=== PATIENT | female | born 1965 | race African-American/Black ===

== ENCOUNTER 2019-11-28 19:30 | Emergency (ER) | payer OTHER ==
--- OUTSIDE RECORDS SUMMARY | 2019-11-28 19:34 | XMS REPORT | Continuity of Care Document ---
:1965 Author Organization [employer] Care Team Providers Name Role Phone [employer] Unavailable Un available Problems Problem Status Onset Classification Date Comments Sourc e Date Reported 782.3 - EDEMA Active 08/09/19 OPI D 14 [place] 719.46 - JOINT Active 03/23/20 OP ID PAIN-L/LE 13 [place] HEADACHE, DIZZY Active 08/12/19 [place] 13 [place] CORNELIUS Active 12/18/19 [place] 12 [place] CHRONIC Active 05/20/20 [place] CHOLECYSTITIS 11 [place] ACUTE Active 05/09/20 [place] CHOLELITHIASIS 11 [place] Cholelithiasis Active Problem 08/14/2012 O PID [place] Pain Active Problem 08/14/2012 OPID [place] Anxiety Active Problem 08/14/2012 [place] Arthritis Active Problem 08/14/2012 [place] Carpal tunnel Active Problem 08/14/2012 [place] Cystitis Active Problem 08/14/2012 [place] Fibroid uterus Active Problem 08/14/2012 [place] HTN - Resolved Problem 08/14/2012 [place] Hypertension [place] Migraine Active Problem 08/14/2012 [place] Sleep apnea Active Problem 08/14/2012 [place] Anxiety (finding) Active Problem 08/11/2013 M H OPID [place], OPID [place] Arthritis Active Problem 08/11/2013 OPID (disorder) [place], OPID Zam[place] Entire carpal Active Problem 08/11/2013 OP ID canal (body [place] structure) [place], OPID Zam[place] Calculus in Active Problem 08/11/2013 OPID biliary tract [place] (disorder) [place], OPID [place] Cystitis Active Problem 08/11/2013 OPID (disorder) [place], OPID [place] Leiomyoma, 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 Problem 08/11/2013 OP ID ICD-O subtype [place] (morphologic [place],MH abnormality) OPID [place] Hypertensive Resolved Problem 08/11/2013 OPI D disorder, [place] systemic arterial [place] (disorder) ROBBY Zamud[place] Migraine Active Problem 08/11/2013 OPID (disorder) [place], ROBBY Zam[place] Pain (finding) Active Problem 08/11/2013 O PID [place], ROBBY [place] Sleep apnea Active Problem 08/11/2013 OPID (finding) [place], OPID Rob[place] CHOLELITHIASIS Active [place] NOS [place] Medications Medication Details Route Status Patient Ordering Order Source Instructions Provider Date tizanidine 4 mg Substitution Active [place] oral tablet Allowed 013 [place] 10/325 Substitution Active [place] oral tablet Allowed, 013 [place] Maintenance Nasonex 50 Substitute Active [place] mcg/inh nasal Allowed 013 [place] spray omeprazole Substitution Active [place] Allowed 013 [place] zolpidem Substitution Active [place] Allowed [place]13 [place] Norvasc 5 mg Substitution Active [place] oral tablet Allowed 013 [place] Xanax 0.25 mg Substitution Active [place] oral tablet Allowed 013 [place] Toprol-XL 50 mg Substitution Active [place] oral tablet, Allowed 013 [place] extended release triamterene Substitution Active [place] All[place] BD Posiflush SF 15 mL, Route: IVP [facility] [place] IVP, Drug Form: Longer 011 [place] INJ, PRN, PRN Active Line Flush, Start date: 05/10/11 13:23:00, Duration: 30 day, Stop date: 06/09/11 13:22:00 lisinopril 10 mg, 2 tab, PO [facility] [place] Route: PO, Drug [place]11 [place] form: TAB, Active ONCE, Start date: 05/10/11 12:30:00, Stop date: 05/10/11 12:30:00 metoprolol 50 mg, 2 tab, PO [facility] [place] Route: PO, Drug [place]11 [place] form: TAB, Active ONCE, Start date: 05/10/11 12:28:00, Stop date: 05/10/11 12:28:00 Zosyn 3.375 gm, IV [facility] [place] Route: IV, Longer 011 [place] [id number], Start Active date: 05/10/11 12:00:00, Duration: 30 day, Stop date: 06/09/11 4:00:00 Metoprolol 25 mg, 1 tab, PO Active [place] Succinate ER 25 PO, BID, 011 [place] mg oral tablet, Substitution extended release Allowed loratadine 10 mg 10 mg, 1 tab, PO Active H [place] oral tablet PO, Daily, PRN, 011 [place] as needed for allergy symptoms, Substitution Allowed Multiple 1 tab, PO, PO Active [place] Vitamins oral Daily, 30 tab, 011 Arnoldo d tablet Substitution Allowed, Maintenance, TAB Sodium Chloride 1,000 mL, Rate: IV Kirsten [facility] [place] 0.9% (Bolus) IV 100 ml/hr, Longer Angelina 1,000 mL Infuse over: 10 Active hr, Route: IV, Total Volume: 1,000, Start date: 05/10/11 4:40:00, Duration: 30 day, Stop date: 06/09/11 4:39:00 Saline Flush 5 ml, Route: IVP [facility] [place] 0.9% IVP, Drug Form: [place] INJ, PRN, PRN Active Line Flush, Start date: 05/10/11 4:11:00, Duration: 30 day, Stop date: 06/09/11 4:10:00 ondansetron 4 mg, 2 mL, IVP [facility] [place] Route: IVP, [place] Drug form: INJ, Active Q6H, PRN Nausea & Vomiting, Start date: 05/10/11 4:11:00, Duration: 30 day, Stop date: 06/09/11 4:10:00 morphine Sulfate 2 mg, 0.4 mL, IVP [facility] [place] Route: IVP, [place] 011 [place] Drug form: INJ, Active Q3H, PRN Pain Score 4-6, Start date: 05/10/11 4:11:00, Duration: 30 day, Stop date: 06/09/11 4:10:00 acetaminophen 650 mg, 2 tab, PO [facility] [place] Route: PO, Drug [place] 011 [place] form: TAB, Q4H, Active PRN Pain/Fever, Start date: 05/10/11 4:11:00, Duration: 30 day, Stop date: 06/09/11 4:10:00 Zosyn 3.375 gm, IVPB No [facility] [place] Route: IVPB, [place] 011 [place] ONCE, Priority: Active STAT, Start date: 05/10/11 3:33:00, Stop date: 05/10/11 3:33:00 Zofran 4 mg, Route: IVP No [facility] [place] IVP, Drug form: [place]11 [place] INJ, ONCE, Active Priority: STAT, Start date: 05/10/11 3:33:00, Stop date: 05/10/11 3:33:00 morphine Sulfate 2 mg, Route: IVP No [facility] [place] IVP, ONCE, Long[place] 011 [place] Priority: STAT, Active Start date: 05/10/11 3:33:00, Stop date: 05/10/11 3:33:00 Ibu 600 mg oral 600 mg, PO, PO Active [place] tablet Q6H, PRN, 30 011 [place] tab, Pain, Substitution Allowed, Take with foodTake with food citalopram 10 mg 1 tab, PO, PO Active [place] oral tablet Daily, 30 tab, 011 [place] Substitution Allowed, TAB lisinopril 10 mg 1 tab, PO, PO Active [place] oral tablet Daily, 30 tab, 011 [place] Substitution Allowed, TAB metoprolol 50 mg 1 tab, PO, BID, PO No [place] oral tablet 180 tab, Longer 011 [place] Substitution Active Allowed, TAB ketorolac 30 mg, 1 mL, IVP No [facility] [place] Route: IVP, Long[place] 011 [place] Drug form: INJ, Active ONCE, Priority: STAT, Start date: 05/09/11 22:18:00, Stop date: 05/09/11 22:18:00 ondansetron 4 mg, 2 mL, IVP No [facility] [place] Route: IVP, [place] 011 [place] Drug form: INJ, Active ONCE, Priority: STAT, Start date: 05/09/11 22:18:00, Stop date: 05/09/11 22:18:00 Saline Flush 5 ml, Route: IVP No [place] 0.9% IVP, Drug Form: [place] 011 [place] INJ, PRN, PRN Active Line Flush, Start date: 05/09/11 22:18:00, Duration: 30 day, Stop date: 06/08/11 22:17:00 Sodium Chloride 1,000 mL, Rate: IV No [place] 0.9% (Bolus) IV 1,000 ml/hr, Longer 011 Arnoldo d 1,000 mL Infuse over: 1 Active hr, Route: IV, Total Volume: 1,000, Bolus Dose, Priority: STAT, Start date: 05/09/11 22:18:00, Duration: 1 doses or times, Stop date: 05/09/11 23:17:00 Allergies, Adverse Reactions, Alerts No Known Medication Allergies Immunizations No Data Provided for This Section Results Order Name Results Value Reference Date Interpretation Comments Ketty rce Range CHEMISTRY Lipase Lvl 150.0 73 - 393 05/10 Normal [place] CHEMISTRY Globulin 4.2 2.0 - 4.0 05/10 HI [place] CHEMISTRY A/G Ratio 0.9 0.7 - 1.6 05/10 Normal [place] CHEMISTRY B/C Ratio 12.0 6 - 25 05/10 Normal [place] CHEMISTRY AGAP 14.0 10.0 - 05/10 Normal MH 20.0 [place] CHEMISTRY Total Protein 8.0 6.4 - 8.4 05/10 Normal [place] CHEMISTRY Alk Phos 73.0 39 - 136 05/10 Normal [place] CHEMISTRY ALT 27.0 0 - 65 05/10 Normal [place] CHEMISTRY Albumin Lvl 3.8 3.5 - 5.0 05/10 Normal [place] CHEMISTRY AST 14.0 0 - 37 05/10 Normal [place] CHEMISTRY Bili Total 0.3 0.2 - 1.3 05/10 Normal [place] CHEMISTRY Creatinine 1.0 0.5 - 1.4 05/10 Normal MH Lvl /2010 [place] CHEMISTRY Sodium Lvl 139.0 135 - 145 05/10 Normal [place] CHEMISTRY Potassium Lvl 4.0 3.5 - 5.1 05/10 Normal [place] CHEMISTRY CO2 29.0 24 - 32 05/10 Normal [place] CHEMISTRY Chloride Lvl 100.0 95 - 109 05/10 Normal [place] CHEMISTRY Calcium Lvl 9.7 8.5 - 10.5 05/10 Normal [place] CHEMISTRY Glucose Lvl 119.0 05/10 NA <sup>1</sup>In terpretive [place] Data: [place] Reference Ranges : 0 - 7 days : 41 - 90 mg/dL 7 days - 150 yrs : 70 - 99 mg/dL (fasting), based on the clinical recommendation s of the [place] [employer]. CHEMISTRY BUN 12.0 7 - 22 05/10 Normal [place] CHEMISTRY Amylase Lvl 62.0 25 - 115 05/10 Normal [place] HEMATOLOGY MPV 9.9 7.4 - 10.4 05/10 Normal [place] HEMATOLOGY RDW 13.2 11.5 - 05/10 Normal 14.5 [place] HEMATOLOGY MCHC 34.3 32.0 - 05/10 Normal MH 36.0 [place] HEMATOLOGY MCH 33.3 27.0 - 05/10 HI MH 31.0 [place] HEMATOLOGY MCV 97.1 81.0 - 05/10 Normal 99.0 [place] HEMATOLOGY Platelet 293.0 133 - 450 05/10 Normal [place] HEMATOLOGY RBC 4.01 4.20 - 05/10 LOW MH 5.40 /2010 [place] HEMATOLOGY WBC 14.4 3.7 - 10.4 05/10 HI /2010 [place] HEMATOLOGY Hct 38.9 36.0 - 05/10 Normal MH 48.0 /2010 [place] HEMATOLOGY Hgb 13.4 12.0 - 05/10 Normal MH 16.0 [place] HEMATOLOGY Eosinophils # 0.1 0.0 - 0.5 05/10 Normal /2010 [place] HEMATOLOGY Basophils # 0.1 0.0 - 0.2 05/10 Normal [place] HEMATOLOGY Basophils 0.4 0.0 - 1.0 05/10 Normal [place] HEMATOLOGY Monocytes # 0.6 0.0 - 0.8 05/10 Normal MH /2010 [place] HEMATOLOGY Lymphocytes # 1.2 1.0 - 5.5 05/10 Normal MH /2010 [place] HEMATOLOGY Segs-Bands # 12.4 1.5 - 8.1 05/10 HI MH /2010 [place] HEMATOLOGY Monocytes 4.3 2.0 - 12.0 05/10 Normal MH /2010 [place] HEMATOLOGY Eosinophils 0.7 0.0 - 4.0 05/10 Normal MH /2010 [place] HEMATOLOGY Segs 86.1 45.0 - 05/10 HI MH 75.0 [place] HEMATOLOGY Lymphocytes 8.5 20.0 - 05/10 LOW MH 40.0 /2010 [place] HEMATOLOGY RBC Morph Normal 05/10 Normal MH (05/09/2011 23:40:00) ?? [place] HEMATOLOGY Plt Morph Normal 05/10 Normal MH (05/09/2011 23:40:00) ?? [place] URINALYSIS UA Mucus Moderate /LPF >None Seen 05/10 ABN *ABN* [place] (05/09/2011 22:00:00) ?? [place] URINALYSIS UA Bacteria Few /HPF >None Seen 05/10 Normal MH (05/09/2011 22:00:00) ?? [place] URINALYSIS UA Sq Epi Moderate /LPF >Few 05/10 ABN MH *ABN* [place] (05/09/2011 22:00:00) ?? [place] URINALYSIS UA WBC 6-10 /HPF >None Seen 05/10 ABN *ABN* [place] (05/09/2011 22:00:00) ?? [place] URINALYSIS UA RBC 3-5 /HPF >0 - 2 05/10 ABN MH *ABN* [place] (05/09/2011 22:00:00) ?? [place] URINALYSIS UA Glucose Negative >Negative 05/10 Normal MH (05/09/2011 22:00:00) ?? [place] URINALYSIS UA Bili Small >Negative 05/10 ABN MH *ABN* [place] (05/09/2011 22:00:00) ?? [place] URINALYSIS UA Ketones Negative >Negative 05/10 NA MH *NA* [place] (05/09/2011 22:00:00) ?? [place] URINALYSIS UA Blood Negative >Negative 05/10 Normal MH (05/09/2011 22:00:00) ?? [place] URINALYSIS UA Protein Trace >Negative 05/10 ABN MH *ABN* [place] (05/09/2011 22:00:00) ?? [place] URINALYSIS UA Turbidity Slight Cloudy >Clear 05/10 Normal MH (05/09/2011 22:00:00) ?? [place] URINALYSIS UA Color Yellow >Yellow 05/10 NA MH *NA* /2010 [place] (05/09/2011 22:00:00) ?? [place] URINALYSIS UA Spec Grav >=1.030 <<=1.030 05/10 ABN MH *ABN* /2010 [place] (05/09/2011 22:00:00) ?? [place] URINALYSIS UA Leuk Est Negative >Negative 05/10 Normal MH (05/09/2011 22:00:00) ?? [place] URINALYSIS UA Nitrite Negative >Negative 05/10 Normal MH (05/09/2011 22:00:00) ?? [place] URINALYSIS Micro? Performed 05/10 Normal MH (05/09/2011 22:00:00) ?? [place] URINALYSIS UA pH 6.0 5.0 - 8.0 05/10 Normal MH /2010 [place] URINALYSIS UA 1.0 0.1 - 1.0 05/10 Normal Urobilinogen /2010 [place] Microbiolog Culture: 05/10 y Urine /2010 [place] Pathology Reports No Data Provided for This Section Diagnostic Reports Report Value Date Source Chest 2 views Chest 2 views. 08/09/2013 ROBBY [place] HISTORY: Edema. Compared to 02/25/2012, card iac silhouette remains at the upper limits of normal in size. No interval development of pneumonia or pulmonary edema. Mild elevation of the right hemidiaphragm unchanged. No new lesions seen in the interval. Knee wo contrast MRI EXAM: MR RIGHT KNEE WITHOUT CONTRAST. 04/01 TAURUS TANGRoland Zamudio DATE: Apr 01, 2013 02:32:00 PM INDICATION: 719.46 Pain in Joint Involving Low er Leg COMPARISON: None available. TECHNIQUE: Multiplanar, mult isequence images of the right knee are provided without intravenous contrast. FINDINGS: Menisci: Medial meniscus: Maceration throughout the body and posterior horn is noted. There is partial extrusion of the medial meniscal body. Lateral meniscus: Intrasubst ance degeneration is seen throughout the anterior horn. There is mild intrasubstance degeneration of the body and posterior horn. Meniscus is intact otherwise. Ligaments: ACL: Near full-thickness mid substance rupture with increased signal throughout the remaining fibers. PCL: There is minimal increa sed signal within the posterior medial bundle at the femoral attachment. No disruption of fibers is seen. MCL: There is edema surround ing the MCL with mild thickening. No disruption of fibers is seen. Lateral collateral complex: Intact. Extensor mechanism: The quad riceps tendon, patella and the patellar tendon are intact. Muscles: Degenerative signal within the popliteus tendon at the attachment is present. No signal abnormality in the muscles. Cartilage: Patellofemoral compartment: There is extensive cartilage fissuring with areas of full-thickness cartilage loss and central osteophyte formation throughout the central trochlea and patella apex. Medial compartment: Full-thi ckness cartilage loss in the weight-bearing articular surface is seen with subjacent bony edema and sclerosis. Lateral compartment: Surface fraying of the weight-bearing cartilage is noted. Bone: Tricompartmental osteo phytes are present. There is no fracture identified. Soft tissue: Joint effusion is noted. There is a subcutaneous edema throughout the anterior knee. Multiple T2 hyperintense ganglion cysts are seen in the posterior joint recesses. Neurovascular structures are normal. IMPRESSION: 1. Near full-thickness midsubstance tear of the ACL. 2. Grade 1 sprain of the proximal MCL. 3. Macerated medial meniscus posterior horn with extrusion and extensive degenerative tearing of the medial meniscus body. 4. 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 5. Extensive cartilage fissu ring with areas of full-thickness cartilage loss and central osteophyte formation at the patellofemoral compartment. Consultation Notes No Data Provided for This Section Discharge Summaries No Data Provided for This Section History and Physicals No Data Provided for This Section Vital Signs Vital Sign Value Date Comments Source Weight 133.182 08/12/2012 [place] Height 157.48 cm 08/12/2012 [place] Diastolic (mm Hg) 81.0 05/10/2011 MH [place] L and Systolic (mm Hg) 168.0 05/10/2011 [place] Temperature Oral (F) 97.3 F 05/10/2011 MH [place] Respitory Rate 18.0 05/10/2011 [place] Heart Rate 70.0 05/10/2011 MH [place] Heart Rate 81.0 05/10/2011 [place] Temperature Oral (F) 98.2 F 05/10/2011 MH [place] Respitory Rate 20.0 05/10/2011 MH [place] Systolic (mm Hg) 180.0 05/10/2011 MH [place] Diastolic (mm Hg) 91.0 05/10/2011 MH [place] L and Height 157.48 cm 05/10/2011 MH [place] Weight 143.267 05/10/2011 MH [place] Respitory Rate 20.0 05/10/2011 MH [place] Systolic (mm Hg) 154.0 05/10/2011 MH [place] Heart Rate 78.0 05/10/2011 [place] Diastolic (mm Hg) 72.0 05/10/2011 [place] L and Temperature Oral (F) 97.8 F 05/10/2011 [place] Height 157.48 cm 05/10/2011 [place] Weight 143.0 05/10/2011 [place] Encounters Location Location Encounter Encounter Reason Attending ADM NE Stat us Source Details Type Number For Provider Date Date Visit OU [id number] ACUTE JAYESH 05/10 05/10 Active [place] CHOLELIT HEARD /2010 [place] HIASIS Outpatient [id number] CORNELIUS DOLORES 12/23 Active [place] NUNU /2012 [place] Emergency [id number] HEADACHE ZEESHAN 08/12 08/12 Activ e [place] , DIZZY QUINTANILLA /2012 [place] OD [id number] 719.46 - REHAL 04/01 04/01 Active OPID JOINT OJANI /2012 [place] PAIN-L/L E OD [id number] 782.3 - REHAL 08/09 08/09 Active OPID EDEMA OJANI /2013 [place] DS [id number] CHRONIC JAYESH Cancel [place] CHOLECYS HEARD [place] TITIS Procedures Procedure Code Date Perfomer Comments Source Hysterectomy [id number] [place] Assessment and Plan No Data Provided for This Section Plan of Care No Data Provided for This Section Social History No Data Provided for This Section Family History No Data Provided for This Section Advance Directives No Data Provided for This Section Functional Status No Data Provided for This Section
--- NOTE | 2019-11-28 20:19 | RAD REPORT ---
EXAM DESCRIPTION: CT - Ct Stroke Brain Wo Cont - 11/28/2019 8:12 pm CLINICAL HISTORY: NUMBNESS Headache, drowsiness, CVA symptomology COMPARISON: No comparisons TECHNIQUE: All CT scans are performed using dose optimization technique as appropriate and may inclu de automated exposure control or mA/KV adjustment according to patient size. FINDINGS: No intracranial hemorrhage, hydrocephalus or extra-axial fluid collection.No areas of brai n edema or evidence of midline shift. The paranasal sinuses and mastoids are clear. The calvarium is intact. IMPRESSION: No acute intracranial abnormality.
--- NOTE | 2019-11-28 20:20 | RAD REPORT ---
EXAM DESCRIPTION: RAD - Chest Single View - 11/28/2019 8:15 pm CLINICAL HISTORY: numbness Chest pain. COMPARISON: Chest Single View dated 02/09/2017 FINDINGS: Portable technique limits examination quality. The lungs are grossly clear. The heart is mildly prominent in size. No displaced fractures. IMPRESSION: No acute intrathoracic process suspected.
[2019-11-28 20:57] LABS: Absolute Lymphocytes (CBC) 1.7 K/uL (0.7-4.9); Basophils % 0.8 % (0-1.3); Hematocrit 42.9 % (36.0-45.0); Lymphocytes % 20.1 % (15.3-44.8); MPV 10.2 fL (7.6-11.3); RBC Red Blood Cell Count 4.37 M/uL (3.86-4.86)
[2019-11-28 21:05] LABS: Protime INR 1.12
[2019-11-28 21:16] LABS: Magnesium 1.6 mg/dL (1.8-2.4); Phosphorus 2.2 mg/dL (2.5-4.9)
[2019-11-28 21:22] LABS: ALT/SGPT 29 U/L (12-78); AST/SGOT 28 U/L (15-37); Albumin 3.5 g/dL (3.4-5.0); Alkaline Phosphatase 112 U/L (45-117); BUN Blood Urea Nitrogen 10 mg/dL (7-18); Bicarbonate 29 mmol/L (21-32); Bilirubin Direct 0.1 mg/dL (0-0.2); Bilirubin Total 0.4 mg/dL (0.2-1.0); Glucose Level 136 mg/dL (74-106); Potassium 4.4 mmol/L (3.5-5.1); Protein, Total 7.7 g/dL (6.4-8.2); Sodium Level 139 mmol/L (136-145); Troponin (Emerg Dept Use Only) < 0.02 ng/mL (0.0-0.045)
[2019-11-28] MEDS ORDERED: ASPIRIN 81 MG CHEWABLE TABLET ONE (23:23)
--- NOTE | 2019-11-29 00:37 | EDPHYS ---
Physician Documentation [facility] Name: Moraima Maciel Age: 54 yrs Sex: Female : 1965 Arrival Date: 11/28/2019 Time: 19:31 Bed 19 Private MD: ED Physician Leon Lewis HPI: 11/27 20:02 This 54 yrs old Black Female presents to ER via Ambulatory with complaints of Numbness mh7 Of Arm. 20:02 The patient's problem is reported as paresthesias, in right upper extremity, in right mh7 lower extremity, in right side of face, weakness, in the right upper extremity, in the right lower extremity. Onset: The symptoms/episode began/occurred yesterday. Duration: The episodes are intermittent, lasting 3 hour(s), the last episode was just prior to arrival. Context: the episode(s) was witnessed, by no one, symptoms became apparent at 18:00. occurred at home, occurred while the patient was sitting. The symptoms are alleviated by nothing. The symptoms are aggravated by nothing. Associated signs and symptoms: Pertinent positives: weakness, Pertinent negatives: abdominal pain, agitation, ataxia, blurred vision, chest pain, combativeness, confusion, diaphoresis, diarrhea, dizziness, headache, lightheadedness, nausea, palpitations, seizure, shortness of breath, tingling, vertigo, vomiting. Severity of symptoms: At their worst the symptoms were moderate today, in the emergency department the symptoms have improved markedly. Historical: - Allergies: 19:46 No Known Allergies; ll1 - Home Meds: 19:52 tramadol 50 mg Oral tab [Active]; losartan 50 mg oral tab [Active]; levocetirizine 5 mg lp1 oral tab 1 tab once daily [Active]; furosemide 40 mg Oral tab [Active]; gabapentin 300 mg oral cap [Active]; metoprolol tartrate 50 mg Oral tab 1 tab 2 times per day [Active]; tizanidine 4 mg oral tab [Active]; potassium chloride 20 mEq Oral TbER [Active]; - PMHx: 19:46 Anxiety; Hypertension; Arthritis; Atrial Fib; ll1 - PSHx: 19:52 Hysterectomy; Cholecystectomy; lp1 - Immunization history:: Adult Immunizations up to date. - Social history:: Patient/guardian denies using alcohol, street drugs, tobacco products, Smoking status: Patient denies any tobacco usage or history of. ROS: 20:02 Constitutional: Negative for fever, chills, and weight loss, Eyes: Negative for injury, mh7 pain, redness, and discharge, ENT: Negative for injury, pain, and discharge, Neck: Negative for injury, pain, and swelling, Cardiovascular: Negative for chest pain, palpitations, and edema, Respiratory: Negative for shortness of breath, cough, wheezing, and pleuritic chest pain, Abdomen/GI: Negative for abdominal pain, nausea, vomiting, diarrhea, and constipation, Back: Negative for injury and pain, : Negative for injury, bleeding, discharge, and swelling, Skin: Negative for injury, rash, and discoloration, Psych: Negative for depression, anxiety, suicide ideation, homicidal ideation, and hallucinations, Allergy/Immunology: Negative for hives, rash, and allergies, Endocrine: Negative for neck swelling, polydipsia, polyuria, polyphagia, and marked weight changes, Hematologic/Lymphatic: Negative for swollen nodes, abnormal bleeding, and unusual bruising. Exam: 20:02 Constitutional: This is a well developed, well nourished patient who is awake, alert, mh7 and in no acute distress. Head/Face: Normocephalic, atraumatic. Eyes: Pupils equal round and reactive to light, extra-ocular motions intact. Lids and lashes normal. Conjunctiva and sclera are non-icteric and not injected. Cornea within normal limits. Periorbital areas with no swelling, redness, or edema. ENT: Nares patent. No nasal discharge, no septal abnormalities noted. Tympanic membranes are normal and external auditory canals are clear. Oropharynx with no redness, swelling, or masses, exudates, or evidence of obstruction, uvula midline. Mucous membranes moist. Neck: Trachea midline, no thyromegaly or masses palpated, and no cervical lymphadenopathy. Supple, full range of motion without nuchal rigidity, or vertebral point tenderness. No Meningismus. Chest/axilla: Normal chest wall appearance and motion. Nontender with no deformity. No lesions are appreciated. Cardiovascular: Regular rate and rhythm with a normal S1 and S2. No gallops, murmurs, or rubs. Normal PMI, no JVD. No pulse deficits. Respiratory: Lungs have equal breath sounds bilaterally, clear to auscultation and percussion. No rales, rhonchi or wheezes noted. No increased work of breathing, no retractions or nasal flaring. Abdomen/GI: Soft, non-tender, with normal bowel sounds. No distension or tympany. No guarding or rebound. No evidence of tenderness throughout. Back: No spinal tenderness. No costovertebral tenderness. Full range of motion. Skin: Warm, dry with normal turgor. Normal color with no rashes, no lesions, and no evidence of cellulitis. MS/ Extremity: Pulses equal, no cyanosis. Neurovascular intact. Full, normal range of motion. Neuro: Awake and alert, GCS 15, oriented to person, place, time, and situation. Cranial nerves II-XII grossly intact. Motor strength 5/5 in all extremities. Sensory grossly intact. Cerebellar exam normal. Normal gait. Psych: Awake, alert, with orientation to person, place and time. Behavior, mood, and affect are within normal limits. 20:12 ECG was reviewed by the Attending Physician. [facility] 11/28 00:32 Radiologist reports: No acute intracranial findings [facility] Vital Signs: 11/27 19:42 BP 190 / 83; Pulse 68; Resp 20; Temp 98.3; Pulse Ox 100% ; Pain 0/10; ll1 20:30 BP 162 / 35; Pulse 66; Resp 20; Pulse Ox 100% ; ll1 21:30 BP 140 / 55; Pulse 57; Resp 19; Pulse Ox 100% ; ll1 22:00 BP 144 / 86; Pulse 63; Resp 20; Pulse Ox 100% on R/A; ll1 22:39 BP 157 / 78; Pulse 62; Resp 20; Pulse Ox 100% ; ll1 23:16 BP 154 / 62; Pulse 59; Resp 20; Pulse Ox 100% ; ll1 23:42 BP 155 / 32; Pulse 58; Resp 20; Pulse Ox 100% ; ll1 11/28 00:00 BP 146 / 50; Pulse 50; Resp 19; Pulse Ox 94% ; vc 01:00 BP 150 / 44; Pulse 63; Resp 14; Pulse Ox 100% on R/A; vc 11/27 23:42 Agreed to be transferred to [facility]. Dr. Lewis informed. 1 NIH Stroke Scale Scores: 22:00 NIHSS Score: 0 1 MDM: 19:50 Patient medically screened. [facility] 11/28 00:32 Differential diagnosis: CVA, TIA, paralysis, metabolic disorder, drug effects. Data [facility] reviewed: vital signs, nurses notes, old medical records, lab test result(s), cardiac enzymes, CBC, electrolytes, urinalysis, EKG, radiologic studies, CT scan, plain films. Data interpreted: clinical research monitor: rate is 60 beats/min, rhythm is normal sinus rhythm, regular, Interpretation: normal rate, normal rhythm, Pulse oximetry: on room air is 95 %. Interpretation: normal. Counseling: I had a detailed discussion with the patient and/or guardian regarding: the historical points, exam findings, and any diagnostic results supporting the discharge/admit diagnosis, the presence of at least one elevated blood pressure reading (>120/80) during this emergency department visit, lab results, radiology results, the need to transfer to another facility, for higher level of care, [facility] does not immediately have the required specialist. 00:36 Physician consultation:. [facility] 11/27 19:51 Order name: Basic Metabolic Panel; Complete Time: 21:31 [facility] 11/27 19:51 Order name: CBC with Diff; Complete Time: 21:17 [facility] 11/27 19:51 Order name: Protime (+inr); Complete Time: 21:17 [facility] 11/27 19:51 Order name: Ptt, Activated; Complete Time: 21:17 [facility] 11/27 19:52 Order name: LFT's; Complete Time: 21:31 [facility] 11/27 19:52 Order name: Troponin (emerg Dept Use Only); Complete Time: 21:31 [facility] 11/27 19:51 Order name: CT Stroke Brain w/o Contrast; Complete Time: 20:36 [facility] 11/27 19:51 Order name: Stroke CXR 1 View; Complete Time: 20:36 [facility] 11/27 19:51 Order name: EKG; Complete Time: 19:52 [facility] 11/27 19:51 Order name: Accucheck; Complete Time: 21:26 [facility] 11/27 20:07 Order name: Magnesium; Complete Time: 21:17 [facility] 11/27 20:07 Order name: Phosphorus; Complete Time: 21:17 [facility] 11/27 21:09 Order name: Glucose, Ancillary Testing; Complete Time: 21:17 [facility] 11/27 19:51 Order name: Cardiac monitoring; Complete Time: 20:46 [facility] 11/27 19:51 Order name: EKG - Nurse/Tech; Complete Time: 20:46 [facility] 11/27 19:51 Order name: IV Saline Lock; Complete Time: 20:46 [facility] 11/27 19:51 Order name: Labs collected and sent; Complete Time: 20:47 7 11/27 19:51 Order name: NPO; Complete Time: 20:46 [facility] 11/27 19:51 Order name: O2 Per Protocol; Complete Time: 20:46 7 11/27 19:51 Order name: O2 Sat Monitoring; Complete Time: 20:46 7 11/27 19:51 Order name: Stroke Swallow Screen; Complete Time: 20:55 mh7 EC/07 20:12 Rate is 60 beats/min. Rhythm is regular, Normal Sinus Rhythm. QRS Bowen is Normal. GA mh7 interval is normal. QRS interval is normal. QT interval is normal. No Q waves. T waves are Normal. No ST changes noted. Administered Medications: 23:23 Drug: Aspirin Chewable Tablet 324 mg Route: PO; ll1 23:44 Follow up: Response: No adverse reaction; RASS: Alert and Calm (0) ll1 Disposition: 11/29/19 00:35 Transfer ordered to [facility]. Diagnosis is Transient cerebral ischemic attack, unspecified. - Reason for transfer: Higher level of care. - Accepting physician is Dr. Larkin- [facility]'s [facility]. - Condition is Stable. - Problem is new. - Symptoms have improved. NIH Stroke Scale - NIH Stroke Score Date: 11/28/2019 Time: 22:00 Total Score = 0 1a. Level of Consciousness (LOC) - 0(Alert) 1b. Level of Consciousness (LOC) (Year \T\ Age) - 0(Both) 1c. LOC Commands (Open \T\ Closes Eyes/Qa Automation Architect) - 0(Both) 2. Best Gaze (Lateral Gaze Paresis) - 0(Normal) 3. Visual Field Loss - 0(No visual loss) 4. Facial Palsy - 0(Normal) 5a. Left Arm: Motor (10-second hold) - 0(No drift) 5b. Right Arm: Motor (10-second hold) - 0(No drift) 6a. Left Leg: Motor (5-second hold - always test supine) - 0(No drift) 6b. Right Leg: Motor (5-second hold - always test supine) - 0(No drift) 7. Limb Ataxia (finger/nose \T\ heel/sherman - test with eyes open) - 0(Absent) 8. Sensory Loss (pinprick arms/legs/face) - 0(Normal) 9. Best Language: Aphasia (description/naming/reading) - 0(No aphasia) 10. Dysarthria (speech clarity - read or repeat words) - 0(Normal) 11. Extinction and Inattention (visual/tactile/auditory/spatial/personal) - 0(No abnormality) Initials: ll1 Signatures: Dispatcher [employer] EDMS Liza Dallas RN RN lp1 Belinda Avery RN RN Bebo Lebron RN RN ll1 Leon Lewis MD MD mh7 Corrections: (The following items were deleted from the chart) 11/28 01:32 00:35 11/29/2019 00:35 Transfer ordered to [facility]. Diagnosis is Transient cerebral ischemic attack, unspecified. Reason for transfer: Higher level of care. Accepting physician is Dr. Larkin- [facility] [place]. Condition is Stable. Problem is new. Symptoms have improved. mh7
--- NOTE | 2019-11-29 00:37 | ER ---
Nurse's Notes [facility] Name: Moraima Maciel Age: 54 yrs Sex: Female : 1965 Arrival Date: 11/28/2019 Time: 19:31 Bed 19 Private MD: Diagnosis: Transient cerebral ischemic attack, unspecified Presentation: 11/27 19:42 Chief complaint: Patient states: Reports a rehman of numbness to head yesterday at 6pm, ll1 lasted til 11pm. States the numbness began again today. Noticed right side of body feels numb today. Cannot take xarelto due to financial reasons. Coronavirus screen: Proceed with normal triage. Patient denies a cough. Patient reports shortness of breath or difficulty breathing. Patient denies measured and/or subjective temperature greater than 100.4F prior to today's visit. Patient denies travel on a cruise ship or to a country the [facility] currently lists as an affected area. Patient denies contact with known and/or suspected case of COVID-19. Ebola Screen: Patient denies travel to an Ebola-affected area in the 21 days before illness onset. Initial Sepsis Screen: Does the patient meet any 2 criteria? No. Patient's initial sepsis screen is negative. Risk Assessment: Do you want to hurt yourself or someone else? Patient reports no desire to harm self or others. Onset of symptoms was November 27, 2019. 19:42 Method Of Arrival: Ambulatory ll1 19:42 Acuity: ERIC 2 ll1 23:46 Initial Sepsis Screen: Does the patient have a suspected source of infection? No. ll1 Patient's initial sepsis screen is negative. Historical: - Allergies: 19:46 No Known Allergies; ll1 - Home Meds: 19:52 tramadol 50 mg Oral tab [Active]; losartan 50 mg oral tab [Active]; levocetirizine 5 mg lp1 oral tab 1 tab once daily [Active]; furosemide 40 mg Oral tab [Active]; gabapentin 300 mg oral cap [Active]; metoprolol tartrate 50 mg Oral tab 1 tab 2 times per day [Active]; tizanidine 4 mg oral tab [Active]; potassium chloride 20 mEq Oral TbER [Active]; - PMHx: 19:46 Anxiety; Hypertension; Arthritis; Atrial Fib; ll1 - PSHx: 19:52 Hysterectomy; Cholecystectomy; lp1 - Immunization history:: Adult Immunizations up to date. - Social history:: Patient/guardian denies using alcohol, street drugs, tobacco products, Smoking status: Patient denies any tobacco usage or history of. Screenin:00 The patient has not been NPO before screening. The patient is currently on the ll1 following diet: regular The patient does not exhibit slurred or garbled speech The patient is not exhibiting difficulty speaking. The patient does not exhibit difficulty understanding words. The patient is able to swallow own secretions with no drooling or need for suction. Patient tolerated one teaspoon of water. No drooling, immediate coughing, gurgling, or clearing of the throat was noted. The patient tolerated 90mL of water. No drooling, immediate coughing, gurgling, or clearing of the throat was noted. The patient passed the bedside swallow screening. Oral medications may be given as ordered. Contact Physician for further diet orders. Provider notified of bedside swallow screening results: Leon Lewis MD. 23:06 Abuse screen: Denies threats or abuse. Nutritional screening: No deficits noted. ll1 Tuberculosis screening: No symptoms or risk factors identified. VAN Screening: Visual Disturbance: No visual disturbance noted. Aphasia: No aphasia noted. Neglect: No neglect noted. Fall Risk Secondary diagnosis (15 points) TIA, IV access (20 points). Gait- Normal/Bed Rest/Wheelchair (0 pts) Mental Status- Oriented to own ability (0 pts). Total Lindsay Fall Scale indicates Low Risk Score (25-44 pts). Fall prevention measures have been instituted. Side Rails Up X 2 Placed close to Nursing Station Frequent Obs/Assesments occuring As available Patient and Family Educated on Fall Prevention Program and strategies. Assessment: 20:00 General: Appears in no apparent distress. Pain: Denies pain. Neuro: Level of ah Consciousness is awake, alert, Oriented to person, place, time, situation. 20:00 Neuro: Reports numbness in right side on and off since yesterday. Cardiovascular: ah Capillary refill < 3 seconds Patient's skin is warm and dry. Respiratory: Airway is patent Respiratory effort is even, unlabored, Respiratory pattern is regular, symmetrical. Derm: Skin is intact, is healthy with good turgor. 22:00 Reassessment: No changes from previously documented assessment. Patient and/or family ll1 updated on plan of care and expected duration. Pain level reassessed. Patient is alert, oriented x 3, equal unlabored respirations, skin warm/dry/pink. Patient care assumed. Vitals recorded. 23:05 Reassessment: No changes from previously documented assessment. Patient and/or family ll1 updated on plan of care and expected duration. Pain level reassessed. Patient is alert, oriented x 3, equal unlabored respirations, skin warm/dry/pink. Gait steady to restroom. 23:25 General: Appears in no apparent distress. Behavior is calm, cooperative, appropriate ll1 for age. Neuro: Level of Consciousness is awake, alert, obeys commands, Oriented to person, place, time, situation, Brick Paver are equal bilaterally Moves all extremities. Full function Gait is steady, Speech is normal, Facial symmetry appears normal, Pupils are PERRLA, Reports numbness numbness rehman to her head intermittently. Cardiovascular: Reports palpitations, Heart tones S1 S2 Capillary refill < 3 seconds Clubbing of nail beds is absent JVD is absent Patient's skin is warm and dry. Pulses are all present. Rhythm is regular. GI: No deficits noted. 11/28 00:18 Reassessment: Patient appears in no apparent distress at this time. Patient and/or vc family updated on plan of care and expected duration. Pain level reassessed. Musculoskeletal: Range of motion: intact in all extremities, Patient ambulated to bathroom without assistance. 00:55 Reassessment: Patient states numbness comes and goes to right side, no complaints of vc numbness at this. Report given to JUANCARLOS Carroll at [facility]. 01:00 Reassessment: Patient appears in no apparent distress at this time. Patient and/or vc family updated on plan of care and expected duration. Pain level reassessed. Patient is alert/active/playful, equal unlabored respirations, skin warm/dry/pink. 01:15 Reassessment: Patient sitting up in chair talking on phone, no distress noted at this vc time. 01:30 Reassessment: [facility] at bedside to transfer patient, patient ambulated to stretcher, alert oriented, no SOB noted. Vital Signs: 11/27 19:42 BP 190 / 83; Pulse 68; Resp 20; Temp 98.3; Pulse Ox 100% ; Pain 0/10; ll1 20:30 BP 162 / 35; Pulse 66; Resp 20; Pulse Ox 100% ; ll1 21:30 BP 140 / 55; Pulse 57; Resp 19; Pulse Ox 100% ; ll1 22:00 BP 144 / 86; Pulse 63; Resp 20; Pulse Ox 100% on R/A; ll1 22:39 BP 157 / 78; Pulse 62; Resp 20; Pulse Ox 100% ; ll1 23:16 BP 154 / 62; Pulse 59; Resp 20; Pulse Ox 100% ; ll1 23:42 BP 155 / 32; Pulse 58; Resp 20; Pulse Ox 100% ; ll1 06/08 00:00 BP 146 / 50; Pulse 50; Resp 19; Pulse Ox 94% ; vc 01:00 BP 150 / 44; Pulse 63; Resp 14; Pulse Ox 100% on R/A; vc 06 23:42 Agreed to be transferred to [facility]. Dr. Lewis informed. ll1 NIH Stroke Scale Scores: 22:00 NIHSS Score: 0 1 ED Course: 19:31 Patient arrived in ED. cl3 19:34 Leon eLwis MD is Attending Physician. mh7 19:45 Triage completed. ll1 19:46 Arm band placed on Patient placed in an exam room, on a stretcher. ll1 19:54 Alice Palacios, RN is Primary Nurse. 20:11 CT completed. Patient tolerated procedure well. Patient moved back from CT. md1 20:12 CT Stroke Brain w/o Contrast In Process Unspecified. EDMS 20:15 Stroke CXR 1 View In Process Unspecified. EDMS 20:45 Inserted saline lock: 18 gauge in right antecubital area, using aseptic technique. rv Blood collected. 20:45 Initial lab(s) drawn, by me, sent to lab. rv 21:53 initiated transfer with [facility] spoke with Chester Barton to get mw2 patient transferred to [facility]. 22:00 Patient has correct armband on for positive identification. Placed in gown. Bed in low ll1 position. Call light in reach. Side rails up X2. manager monitoring on. Pulse ox on. NIBP on. 23:06 called [facility] spoke with Chester to check on the status of the mw2 transfer. She stated that they are trying to find a doctor to receive report. 23:32 Shalom Donahue declined due to lack of beds. mw2 23:[address] [facility] spoke with Florian. mw2 23:47 No provider procedures requiring assistance completed. 1 11/28 00:[address] [facility]. pt going to [address] Larkin. mw2 01:13 Patient transferred, IV remains in place. vc Administered Medications: 11/27 23:23 Drug: Aspirin Chewable Tablet 324 mg Route: PO; ll1 23:44 Follow up: Response: No adverse reaction; RASS: Alert and Calm (0) 1 Outcome: 11/28 00:35 ER care complete, transfer ordered by . 7 01:13 Transferred by ground EMS to [facility], Transfer form completed. vc 01:13 Condition: stable 01:13 Instructed on follow up and referral plans. the need for transfer. 01:32 Patient left the ED. NIH Stroke Scale - NIH Stroke Score Date: 11/28/2019 Time: 22:00 Total Score = 0 1a. Level of Consciousness (LOC) - 0(Alert) 1b. Level of Consciousness (LOC) (Year \T\ Age) - 0(Both) 1c. LOC Commands (Open \T\ Closes Eyes/Yard Truck Driver) - 0(Both) 2. Best Gaze (Lateral Gaze Paresis) - 0(Normal) 3. Visual Field Loss - 0(No visual loss) 4. Facial Palsy - 0(Normal) 5a. Left Arm: Motor (10-second hold) - 0(No drift) 5b. Right Arm: Motor (10-second hold) - 0(No drift) 6a. Left Leg: Motor (5-second hold - always test supine) - 0(No drift) 6b. Right Leg: Motor (5-second hold - always test supine) - 0(No drift) 7. Limb Ataxia (finger/nose \T\ heel/sherman - test with eyes open) - 0(Absent) 8. Sensory Loss (pinprick arms/legs/face) - 0(Normal) 9. Best Language: Aphasia (description/naming/reading) - 0(No aphasia) 10. Dysarthria (speech clarity - read or repeat words) - 0(Normal) 11. Extinction and Inattention (visual/tactile/auditory/spatial/personal) - 0(No abnormality) Initials: ll1 Signatures: Dispatcher [employer] EDLiza Delaney RN RN lp1 Rina, Gemini mw2 Sourav Banda RN RN Harvey Avila cl3 Ирина David md1 Belinda Avery RN RN vc Harris, Amy, RN RN ah Lewis, Lynsay, RN RN 1 Leon Lewis MD MD 7 Corrections: (The following items were deleted from the chart) 11/27 23:09 21:53 initiated transfer with [facility]. Spoke with Chester Barton 2mw2 23:45 23:43 initiated transfer with [facility] mw2 23:46 19:42 Chief complaint: Patient states: Reports a rehman of numbness to head ll1 yesterday at 6pm, lasted til 11pm. States the numbness began again today. Noticed right side of body feels numb today. Cannot take zarelto due to financial reasons. ll1 11/28 00:32 11/27 23:[address] [facility] spoke with [facility] mw2
[2019-11-29 01:39] VITALS: TEMP 98.3
[2019-11-29 01:49] VITALS: BP 150/44; O2SAT 100
--- NOTE | 2019-11-29 07:45 | EKG ---
Test Date: 2019-11-28 Test Time: 20:00:47 Karate Teacher: SUYAPA MEASUREMENT RESULTS: Intervals: Rate: 60 GA: 168 QRSD: 94 QT: 418 QTc: 418 [place]: P: 60 GA: 168 QRS: 23 T: 53 INTERPRETIVE STATEMENTS: Normal sinus rhythm Normal ECG Compared to ECG 02/11/2017 07:12:36 Myocardial infarct finding no longer present Electronically Signed On 11-29-19 07:44:36 CDT by Taqueria Lozada
== END 2019-11-29 01:32 | disposition short-term general hospital (02) ==
LOC: ER 19:30
DX: G45.9 Transient cerebral ischemic attack, unspecified (principal); I10 Essential (primary) hypertension; I48.91 Unspecified atrial fibrillation; F41.9 Anxiety disorder, unspecified
CPT/HCPCS: 36415; 70450; 71045; 80048; 80076; 82947; 83735; 84100; 84484; 85025; 85610; 85730; 93005; 99285